=== PATIENT | male | born 1990 | race Caucasian/White ===

== ENCOUNTER 2019-09-14 17:14 | Emergency (ER) | payer OTHER, BC ==
[2019-09-14] MEDS ORDERED: ACETAMINOPHEN 325 MG TABLET PO ONE (17:45)
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
[2019-09-14] MEDS ORDERED: OXYCODONE HCL IR 5 MG TABLET PO ONE (18:22)
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
[2019-09-14 20:46] VITALS: BP 111/73
--- NOTE | 2019-09-15 09:27 | EKG REPORT ---
SEVERITY:- NORMAL ECG - SINUS RHYTHM : Confirmed by: Edita Jung MD 15-Sep-2019 09:26:37
== END 2019-09-14 20:57 | disposition home or self-care (01) ==
LOC: ER 17:14
DX: S82.034A Nondisplaced transverse fracture of right patella, initial encounter for closed fracture (principal); R07.89 Other chest pain; M25.561 Pain in right knee; V43.52XA Car driver injured in collision with other type car in traffic accident, initial encounter; Y92.411 Interstate highway as the place of occurrence of the external cause; F17.200 Nicotine dependence, unspecified, uncomplicated
CPT/HCPCS: 93005; 99285; 73564; 71260; 72125; 93010; L1830